=== PATIENT | female | born 1945 | race Caucasian/White ===

== ENCOUNTER 2021-12-09 10:50 | Day surgery (SDC) | payer MEDICARE ==
[~2021-12-09] VITALS: Ht 152.4 cm; Wt 109.1 kg
[~2021-12-09 10:50] MED LIST: ADULT LOW DOSE81 MG PO; ASPIRIN EC81 MG PO; BUSPIRONE HCL10 MG PO; CALCIUM + VITA1 EACH PO; CALCIUM 600 +1 EACH PO; DAILY MULTIPLE1 EACH PO; EFFEXOR XR75 MG PO; FENOFIBRATE160 MG PO; FERROUS SULFAT325 MG PO; GLIPIZIDE XL10 MG PO; HYDROCHLOROTH12.5 MG PO; LEVOTHROID50 MCG PO; LEVOTHYROXINE50 MCG PO; LIPOFEN50 MG PO; LISINOPRIL-HCT1 EACH PO; LISINOPRIL20 MG PO; METFORMIN HCL1000 MG PO; MULTIVITAMINS1 EAC7 PO; NORCO 10-325 T1 EACH PO; NORCO 5-325 TA1 EACH PO; OMEPRAZOLE40 MG PO; PRINZIDE 20-121 EACH PO; RANITIDINE HCL300 M1 PO; RANITIDINE HCL300 MG PO; SENNO8.6 MG PO; SIMVASTATIN20 MG PO; SIMVASTATIN40 MG PO; TRAZODONE HCL50 MG PO; ULTRAM50 MG PO; VENLAFAXINE HCL75 MG PO; VITAMIN C500 M1 PO; VITAMIN C500 M2 PO
--- NOTE | 2021-12-09 14:18 | NUR ---
12/09/21 1418 Celeste Hidalgo 1412 PATIENT ARRIVES TO PACU SLEEPING. AWAKENS WITH VERBAL STIMULI. RESP EVEN AND UNLABORED, NC OFF, ROOM AIR SATS >92%. PATIENT DENIES PAIN OR NAUSEA WHEN AWAKE.
--- NOTE | 2021-12-10 13:13 | OR ---
[facility] [address], [place] [address] Signed DATE OF OPERATION: 12/09/2021 SURGEON: Kade Mathias MD PREOPERATIVE DIAGNOSIS: Colon screening. POSTOPERATIVE DIAGNOSIS: Hyperplastic polyps x3 of sigmoid. PROCEDURE: Total colonoscopy to cecum and cold morcellation polypectomy x2. ANESTHESIA: Intravenous sedation; propofol infusion; Flower Olivera CRNA. INDICATIONS: This 76-year-old obese white woman, who is a patient of ADRYAN Kimble. She has undergone colonoscopy in the past by Dr. Dominik Quinn. She is not known to have polyps and has no family history of colon cancer or symptoms of bleeding, diarrhea, or constipation. She is known to have aortic valve abnormality with a classic aortic murmur, but no aortic valve replacement up to this point. She is admitted to undergo colonoscopy. She understands the risks of bleeding, infection, and perforation. FINDINGS: The prep was good. Complete colonoscopy was undertaken to the cecum. She had 3 small hyperplastic polyps of the sigmoid, all excised. She had no adenomatous polyps. No diverticulosis or other abnormality other than a few internal hemorrhoids as well. DESCRIPTION OF PROCEDURE: The patient was brought to the endoscopy suite and placed in the lateral decubitus position, given intravenous sedation with propofol infusional technique with full cardiopulmonary monitoring. Digital rectal examination was normal. An Olympus video colonoscope was passed in the rectum and manipulated throughout the colon ultimately intubating the cecum itself. The ileocecal valve and appendiceal orifice appeared normal. Scope was withdrawn from that point. Examination throughout showed no sign of abnormality into the sigmoid, where hyperplastic appearing polyps were noted. Three such polyps were noted, they were all excised with cold morcellation technique. The scope was removed. The patient was taken to the recovery room in good condition. Electronically Signed By: KADE MATHIAS MD 12/10/21 1313 PATIENT NAME: NAVDEEP LOPEZ OPERATIVE REPORT DATE OF : 49 REPORT #: [id number] PHYSICIAN: KADE MATHIAS MD PCP: STEVE RODAS PA-C REPORT IS CONFIDENTIAL AND NOT TO BE RELEASED WITHOUT AUTHORIZATION [facility] [address], [place] [address] Signed CONCLUDING DIAGNOSIS: Hyperplastic polyps x3. PLAN: Recommend repeat colonoscopy in 10 years or sooner if clinically indicated. She will return to the ongoing care of ADRYAN Kimble, as well as Dr. Calderón, vendor relationship manager. MD MARGO Duran/MIRIAML /[id number] cc: FELICITY [address] [place] Copies: STEVE RODAS PA-C ~ Electronically Signed By: KADE MATHIAS MD 12/10/21 1313 PATIENT NAME: NAVDEEP LOPEZ OPERATIVE REPORT DATE OF : 49 REPORT #: [id number] PHYSICIAN: KADE MATHIAS MD PCP: STEVE RODAS PA-C REPORT IS CONFIDENTIAL AND NOT TO BE RELEASED WITHOUT AUTHORIZATION
== END 2021-12-09 14:45 | disposition home or self-care (01) ==
LOC: DS 10:50 → OPS 10:50 → DS 12:15 → OPS 12:15
PROVIDERS: ATTEND Surgery
PROC: 0DBN8ZX Excision of Sigmoid Colon, Via Natural or Artificial Opening Endoscopic, Diagnostic (ICD-10-PCS; principal; 2021-12-09 12:15)
DX: Z12.11 Encounter for screening for malignant neoplasm of colon (principal); K63.5 Polyp of colon; E66.01 Morbid (severe) obesity due to excess calories; I35.9 Nonrheumatic aortic valve disorder, unspecified; I10 Essential (primary) hypertension; K21.00 Gastro-esophageal reflux disease with esophagitis, without bleeding; Z90.711 Acquired absence of uterus with remaining cervical stump; Z88.8 Allergy status to other drugs, medicaments and biological substances; Z88.1 Allergy status to other antibiotic agents; Z79.82 Long term (current) use of aspirin; Z79.84 Long term (current) use of oral hypoglycemic drugs; E11.9 Type 2 diabetes mellitus without complications; F32.A Depression, unspecified; G47.30 Sleep apnea, unspecified; Z68.42 Body mass index [BMI] 45.0-49.9, adult
CPT/HCPCS: 88305; J0290; J1580; J2704; J7121

== ENCOUNTER 2023-09-03 23:46 | Emergency (ER) | payer MEDICARE ==
[~2023-09-03] VITALS: Ht 152.4 cm; Wt 111.3 kg
[2023-09-04] MEDS ORDERED: TRAMADOL HCL 50 MG HOME.PACK PO ONE (04:15)
[2023-09-04] MEDS ORDERED: TRAMADOL HCL50 MG PO (04:15)
[2023-09-04 06:48] VITALS: BP 151/68
== END 2023-09-04 06:49 | disposition home or self-care (01) ==
LOC: ED 23:46
DX: M23.91 Unspecified internal derangement of right knee (principal); E11.9 Type 2 diabetes mellitus without complications; I10 Essential (primary) hypertension; Z88.8 Allergy status to other drugs, medicaments and biological substances; Z88.5 Allergy status to narcotic agent; Z79.899 Other long term (current) drug therapy; Z79.82 Long term (current) use of aspirin
CPT/HCPCS: 73560; 73700; 99284; A9270